=== PATIENT | female | born 1965 | race African-American/Black ===

== ENCOUNTER 2019-08-12 06:02 | Emergency (ER) | payer SELFPAY ==
[~2019-08-12] VITALS: Ht 152.4 cm; Wt 68.2 kg
[2019-08-12 06:38] VITALS: BP 110/71
[2019-08-12] MEDS ORDERED: NAPR-682 PO (06:57)
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
[2019-08-12] MEDS ORDERED: KETOROLAC 60 MG/2 ML VIAL. IM ONE (07:00)
== END 2019-08-12 07:17 | disposition home or self-care (01) ==
LOC: ER 06:02
DX: G89.29 Other chronic pain (principal); M54.5 Low back pain; I10 Essential (primary) hypertension; Z98.890 Other specified postprocedural states
CPT/HCPCS: 96372; 99283; J1885

== ENCOUNTER 2019-08-13 10:20 | Emergency (ER) | payer SELFPAY ==
[~2019-08-13] VITALS: Ht 152.4 cm; Wt 160.0 kg
[~2019-08-13 10:20] MED LIST: NAPR-682 PO
[2019-08-13 10:42] VITALS: BP 137/93
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
== END 2019-08-13 11:08 | disposition home or self-care (01) ==
LOC: ER 10:20
DX: G89.29 Other chronic pain (principal); M25.552 Pain in left hip; M19.90 Unspecified osteoarthritis, unspecified site; I10 Essential (primary) hypertension; Z98.890 Other specified postprocedural states
CPT/HCPCS: 99281